=== PATIENT | male | born 1980 | race Hispanic/Latino ===

== ENCOUNTER 2024-02-22 05:14 | Emergency (ER) | payer OTHER ==
--- NOTE | 2024-02-22 05:38 | EDPHYS ---
Physician Documentation [facility] Name: Martínez Su Age: 44 yrs Sex: Male : 1980 Arrival Date: 02/22/2024 Time: 05:14 Bed 18 Private MD: ED Physician Khris Jimenez HPI: 02/21 05:36 This 44 yrs old Male presents to ER via Unassigned with complaints of sp4 Toothache. 05:36 44-year-old male presents with left lower dental pain at the site of the tooth #18. sp4 Historical: - Allergies: 05:52 No Known Allergies; kj2 - Immunization history:: Adult Immunizations unknown. - Infectious Disease History:: Denies. - Social history:: Smoking status: Patient denies any tobacco usage or history of. - Family history:: not pertinent. ROS: 19:20 Constitutional: Negative for fever, chills, and weight loss, positive for dental pain sp4 left side 19:20 All other systems are negative, Exam: 19:20 Constitutional: This is a well developed, well nourished patient who is awake, alert, sp4 and in no acute distress. Head/Face: Normocephalic, atraumatic. Eyes: Pupils equal round and reactive to light, extra-ocular motions intact. Lids and lashes normal. Conjunctiva and sclera are not injected. Cornea within normal limits. Periorbital areas with no swelling, redness, or edema. ENT: Nares patent. No nasal discharge, no septal abnormalities noted. Tympanic membranes are normal and external auditory canals are clear. Oropharynx with no redness, for tooth #18 dental cavity and a chipped tooth Neck: Trachea midline, no thyromegaly or masses palpated, and no cervical lymphadenopathy. Supple, full range of motion without nuchal rigidity, or vertebral point tenderness. Chest/axilla: Normal chest wall appearance and motion. Nontender with no deformity. No lesions are appreciated. Cardiovascular: Regular rate and rhythm with a normal S1 and S2. No gallops, murmurs, or rubs. Normal PMI, no JVD. No pulse deficits. Respiratory: Lungs have equal breath sounds bilaterally, clear to auscultation and percussion. No rales, rhonchi or wheezes noted. No increased work of breathing, no retractions or nasal flaring. Abdomen/GI: Soft, with normal bowel sounds. No distension or tympany. No guarding or rebound. No evidence of tenderness throughout. Back: No spinal tenderness. No costovertebral tenderness. Skin: Warm, dry with normal turgor. Normal color with no rashes, no lesions, and no evidence of cellulitis. MS/ Extremity: Pulses equal, no cyanosis. Neurovascular intact. Full, normal range of motion. Neuro: Awake and alert, GCS 15, oriented to person, place, time, and situation. Cranial nerves II-XII grossly intact. Motor strength 5/5 in all extremities. Sensory grossly intact. Vital Signs: 05:35 Weight 88.45 kg; Height 5 ft. 8 in. ; Pain 9/10; kj2 05:35 BP 140 / 80; Pulse 80; Resp 20; Temp 98.8; Pulse Ox 100% on R/A; kj2 06:17 BP 136 / 82; Pulse 86; Resp 20; Temp 98; Pulse Ox 100% on R/A; kj2 05:35 Body Mass Index 29.65 (88.45 kg, 172.72 cm) kj2 05:35 Pain Scale: Adult kj2 MDM: 05:37 Medical Screening Exam initiated sp4 19:20 Differential diagnosis: dental caries, gingivitis, dental abscess, pericoronitis. Data sp4 reviewed: vital signs, nurses notes, old medical records. ED course: Stable for discharge home with prescribed cephalexin. Administered Medications: 06:15 Drug: Rocephin (cefTRIAXone) IM 1 grams IM once Route: IM; Site: right gluteus; kj2 06:16 Follow up: Response: Medication administered at discharge. kj2 06:16 Drug: Ketorolac IM 60 mg IM once Route: IM; Site: left deltoid; kj2 06:17 Follow up: Response: Medication administered at discharge. kj2 06:16 Drug: HYDROcodone-acetaminophen PO 5 mg-325 mg 2 tabs PO once Route: PO; kj2 06:16 Follow up: Response: Medication administered at discharge. kj2 06:16 Drug: Ondansetron PO 4 mg PO once Route: PO; kj2 06:16 Follow up: Response: Medication administered at discharge. kj2 Disposition: 19:22 Chart complete. sp4 Disposition Summary: 02/22/24 05:37 Discharge Ordered Notes: Location: Home sp4 Problem: new sp4 Symptoms: have improved sp4 Condition: Stable sp4 Diagnosis - Dental caries, unspecified sp4 - Tooth 18 - Acute pulpitis , acute dental pain, dental cavity and chipped tooth sp4 Followup: sp4 - With: Private Physician - When: 2 - 3 days - Reason: Recheck today's complaints Discharge Instructions: - Discharge Summary Sheet sp4 - Dental Caries, Adult sp4 Forms: - Patient Portal Instructions sp4 Prescriptions: - Cephalexin 500 mg Oral Capsule - take 1 capsule ORAL route every 8 hours for 10 days; 30 capsule; Refills: 0, sp4 Product Selection Permitted - Ibuprofen 800 mg Oral Tablet - take 1 tablet ORAL route every 8 hours As needed take with food; 30 tablet; sp4 Refills: 0, Product Selection Permitted - Tramadol 50 mg Oral tablet - take 1 tablet ORAL route every 8 hours as needed; 20 tablet; Refills: 0, sp4 Product Selection Permitted Signatures: Khris Jimenez MD MD sp4 Margarita Camacho RN RN kj2
[2024-02-22] MEDS ORDERED: CEFTRIAXONE 1000 MG/VIAL ONE (06:05)
[2024-02-22] MEDS ORDERED: KETOROLAC 30 MG/ML INJ ONE (06:05)
[2024-02-22] MEDS ORDERED: ONDANSETRON 4 MG (ODT) TAB ONE (06:06)
[2024-02-22] MEDS ORDERED: HYDROCODONE/APAP 5/325 MG TAB ONE (06:06)
--- NOTE | 2024-02-22 06:19 | ER ---
Nurse's Notes [facility] Name: Martínez Su Age: 44 yrs Sex: Male : 1980 Arrival Date: 02/22/2024 Time: 05:14 Bed 18 Private MD: Diagnosis: Dental caries, unspecified;Tooth 18 - Acute pulpitis , acute dental pain, dental cavity and chipped tooth Presentation: 02/21 05:35 Chief complaint: Patient states: toothache. Coronavirus screen: Client denies travel kj2 out of the [place] in the last 14 days. Ebola Screen: No symptoms or risks identified at this time. Initial Sepsis Screen: Does the patient meet any 2 criteria? No. Patient's initial sepsis screen is negative. Does the patient have a suspected source of infection? No. Patient's initial sepsis screen is negative. Risk Assessment: Do you want to hurt yourself or someone else? Patient reports no desire to harm self or others. Onset of symptoms was February 20, 2024. 05:35 Method Of Arrival: Ambulatory kj2 05:35 Acuity: FRANCIS 3 kj2 Triage Assessment: 05:53 General: Appears in no apparent distress. Behavior is cooperative. Pain: Complains of kj2 pain in left side of mouth Pain currently is 9 out of 10 on a pain scale. EENT: Reports pain in left cheek. Historical: - Allergies: 05:52 No Known Allergies; kj2 - Immunization history:: Adult Immunizations unknown. - Infectious Disease History:: Denies. - Social history:: Smoking status: Patient denies any tobacco usage or history of. - Family history:: not pertinent. Screenin:56 [facility] ED Fall Risk Assessment (Adult) History of falling in the last 3 months, kj2 including since admission No falls in past 3 months (0 pts) Confusion or Disorientation No (0 pts) Intoxicated or Sedated No (0 pts) Impaired Gait No (0 pts) Mobility Assist Device Used No (0 pt) Altered Elimination No (0 pt) Score/Fall Risk Level 0 - 2 = Low Risk Maintained a safe environment, Hourly rounding (assess needs \T\ fall precautionary measures) done. Abuse screen: Denies threats or abuse. Denies injuries from another. Nutritional screening: No deficits noted. Tuberculosis screening: No symptoms or risk factors identified. Assessment: 05:40 General: see triage. kj2 06:17 Reassessment: Patient appears in no apparent distress at this time. Patient and/or kj2 family updated on plan of care and expected duration. Pain level reassessed. Patient is alert, oriented x 3, equal unlabored respirations, skin warm/dry/pink. Vital Signs: 05:35 Weight 88.45 kg; Height 5 ft. 8 in. ; Pain 9/10; kj2 05:35 BP 140 / 80; Pulse 80; Resp 20; Temp 98.8; Pulse Ox 100% on R/A; kj2 06:17 BP 136 / 82; Pulse 86; Resp 20; Temp 98; Pulse Ox 100% on R/A; kj2 05:35 Body Mass Index 29.65 (88.45 kg, 172.72 cm) kj2 05:35 Pain Scale: Adult kj2 ED Course: 05:16 Patient arrived in ED. jj6 05:35 Khris Jimenez MD is Attending Physician. sp4 05:46 Margarita Camacho RN is Primary Nurse. kj2 05:52 Triage completed. kj2 05:56 Patient has correct armband on for positive identification. Provided Education on: call kj2 light. 05:57 Arm band placed on Patient placed in an exam room, on a stretcher. kj2 06:17 Patient did not have IV access during this emergency room visit. kj2 06:17 No provider procedures requiring assistance completed. kj2 Administered Medications: 06:15 Drug: Rocephin (cefTRIAXone) IM 1 grams IM once Route: IM; Site: right gluteus; kj2 06:16 Follow up: Response: Medication administered at discharge. kj2 06:16 Drug: Ketorolac IM 60 mg IM once Route: IM; Site: left deltoid; kj2 06:17 Follow up: Response: Medication administered at discharge. kj2 06:16 Drug: HYDROcodone-acetaminophen PO 5 mg-325 mg 2 tabs PO once Route: PO; kj2 06:16 Follow up: Response: Medication administered at discharge. kj2 06:16 Drug: Ondansetron PO 4 mg PO once Route: PO; kj2 06:16 Follow up: Response: Medication administered at discharge. kj2 Medication: 05:56 VIS not applicable for this client. kj2 Outcome: 05:37 Discharge ordered by . spJacek 05:57 Discharged to home ambulatory, kj2 05:57 Condition: stable 05:57 Discharge instructions given to patient, Instructed on discharge instructions, follow up and referral plans. Demonstrated understanding of instructions, follow-up care, 06:18 Patient left the ED. kj2 Signatures: Marylin Gill jj6 Khris Jimenez MD MD sp4 Margarita Camacho, RN RN kj2
[2024-02-22 09:25] VITALS: O2SAT 100
[2024-02-22 09:27] VITALS: BP 136/82; TEMP 98
== END 2024-02-22 06:18 | disposition home or self-care (01) ==
LOC: ER 05:14
DX: K02.9 Dental caries, unspecified (principal); S02.5XXA Fracture of tooth (traumatic), initial encounter for closed fracture; K04.01 Reversible pulpitis
CPT/HCPCS: 96372; 99284; Q0162; J0696